=== PATIENT | male | born 1995 | race Caucasian/White ===

== ENCOUNTER 2020-08-05 18:40 | Emergency (ER) | payer BC, OTHER ==
[~2020-08-05] VITALS: Ht 177.8 cm; Wt 76.7 kg
[2020-08-05 18:45] VITALS: BP 154/76
== END 2020-08-05 20:59 | disposition home or self-care (01) ==
LOC: ED 20:55
DX: S63.502A Unspecified sprain of left wrist, initial encounter (principal); F17.200 Nicotine dependence, unspecified, uncomplicated; W10.8XXA Fall (on) (from) other stairs and steps, initial encounter; Y93.89 Activity, other specified; Y92.69 Other specified industrial and construction area as the place of occurrence of the external cause; Y99.0 Civilian activity done for income or pay
CPT/HCPCS: 29125; 99283